=== PATIENT | female | born 1960 | race Caucasian/White ===

== ENCOUNTER → 2018-07-06 | Outpatient (CLI) | payer OTHER ==
[~2018-07-06] MED LIST: AMIT50 PO; ATOR40TA PO; CLON.1 PO; DULO30 PO; LISI20 PO; METO100ER PO; ROPI.25 PO; Valium5 MG PO
== END | disposition home or self-care (01) ==
LOC: LAB SHORT 10:18 → LAB EV 10:18
DX: L08.9 Local infection of the skin and subcutaneous tissue, unspecified (principal)
CPT/HCPCS: 87070; 87075; 87205

== ENCOUNTER → 2018-07-23 | Outpatient (CLI) | payer OTHER | LOC: LAB EV 11:15 → LAB SHORT 11:15 | DX: L08.9 Local infection of the skin and subcutaneous tissue, unspecified (principal) | CPT/HCPCS: 87070; 87077; 87147; 87186; 87205 ==